=== PATIENT | female | born 1960 | race Caucasian/White ===

== ENCOUNTER → 2023-07-28 13:29 | Outpatient (CLI) | payer OTHER, SELFPAY ==
--- NOTE | 2023-07-28 13:32 | DI.RAD.S_ITS ---
PROCEDURE: FL BARIUM SWALLOW INDICATIONS: Disorder of kidney and ureter, unspecified COMPARISON: None. FINDINGS: Function: There is normal esophageal peristalsis. There are a few episodes of delayed transit of ingested oral contrast in the recumbent position. No tertiary contractions identified during these episodes. No elicited gastroesophageal reflux. There is normal transit of a calibrated barium tablet through the esophagus into the stomach. Morphology: Air-contrast images demonstrate normal mucosal morphology. Small hiatal hernia. Single contrast views show no esophageal strictures, extrinsic mass effects, or diverticula. Limited images of the stomach demonstrate normal appearance. IMPRESSION: 1. A few episodes of delayed transit of ingested oral contrast without evidence for tertiary contractions/esophageal spasms. 2. Small hiatal hernia. Otherwise, unremarkable fluoroscopic barium swallow examination. Dictated by: Keith Munson M.D. on 07/28/2023 at 22:10 Approved by: Keith Munson M.D. on 07/28/2023 at 22:13
== END ==
LOC: RAD 13:31
PROVIDERS: PCP Internal Medicine; Referring Provider Internal Medicine; Visit Provider Internal Medicine
DX: R13.13 Dysphagia, pharyngeal phase (principal); K44.9 Diaphragmatic hernia without obstruction or gangrene
CPT/HCPCS: 74220